=== PATIENT | female | born 1990 | race Caucasian/White ===

== ENCOUNTER 2022-12-30 09:04 | Emergency (ER) | payer OTHER ==
[~2022-12-30] VITALS: Ht 152.4 cm; Wt 70.8 kg
[2022-12-30 09:21] VITALS: BP 125/66; PULSE 61; RESP 14; TEMP 98.4; O2SAT 99
[2022-12-30 09:34] VITALS: BP 130/67; PULSE 66; RESP 12; TEMP 97.8; O2SAT 98
[2022-12-30] MEDS ORDERED: KETOROLAC 30 MG/ML VIAL IM ONE (10:30)
[2022-12-30] MEDS ORDERED: METOCLOPRAMIDE 10 MG TAB PO ONE (10:30)
[2022-12-30] MEDS ORDERED: METO-485 PO (10:58)
[2022-12-30] MEDS ORDERED: IBUP-2213 PO (10:58)
== END 2022-12-30 11:50 | disposition home or self-care (01) ==
LOC: MED 09:04
DX: S06.0XAA Concussion with loss of consciousness status unknown, initial encounter (principal); J45.909 Unspecified asthma, uncomplicated; Z79.899 Other long term (current) drug therapy; W01.0XXA Fall on same level from slipping, tripping and stumbling without subsequent striking against object, initial encounter; Y93.89 Activity, other specified; Y92.89 Other specified places as the place of occurrence of the external cause; Y99.8 Other external cause status
CPT/HCPCS: 70450; 96372; 99285; J1885; J8597